=== PATIENT | female | born 1990 | race Caucasian/White ===

== ENCOUNTER 2018-04-10 13:17 | Outpatient (CLI) | END 2018-04-10 16:15 | disposition home or self-care (01) ==

== ENCOUNTER 2018-04-13 19:56 | Outpatient (CLI) | END 2018-04-13 22:10 | disposition home or self-care (01) ==

== ENCOUNTER 2018-04-15 20:38 | Inpatient (IN) | END 2018-04-18 15:38 | disposition home or self-care (01) | DRG 781 ==

== ENCOUNTER 2018-05-02 08:07 | Inpatient (IN) | END 2018-05-06 19:00 | disposition home or self-care (01) | DRG 775 ==